=== PATIENT | female | born 1955 | race Caucasian/White ===

== ENCOUNTER 2022-10-13 11:57 | Emergency (ER) | payer MEDICARE, MEDICAID ==
[2022-10-13] MEDS: Take Home: Amoxicillin 875 MG Tab, 2 Tab Pack PO ONE (12:27)
== END 2022-10-13 12:35 | disposition home or self-care (01) ==
LOC: VM.ED 11:57
DX: J32.9 Chronic sinusitis, unspecified (principal); E11.22 Type 2 diabetes mellitus with diabetic chronic kidney disease; I13.0 Hypertensive heart and chronic kidney disease with heart failure and stage 1 through stage 4 chronic kidney disease, or unspecified chronic kidney disease; I50.9 Heart failure, unspecified; N18.9 Chronic kidney disease, unspecified
CPT/HCPCS: 99284; A9270; 99283

== ENCOUNTER 2023-04-10 09:48 | Inpatient (IN) | payer MEDICARE, MEDICAID ==
[2023-04-10] MEDS ORDERED: Iopamidol 612 MG/ML 100 ML Bottle IVPUSH ONE (10:07)
[2023-04-10] MEDS ORDERED: Sodium Chloride 0.9% 1,000 ML IV SCH ×2 (11:30→22:00)
[2023-04-10] MEDS ORDERED: Piperacillin/Tazobactam 4.5 GM in Sodium Chloride 0.9% 100 ML IV ONE (12:15)
[2023-04-10] MEDS ORDERED: Sodium Chloride 0.9% 10 ML Syringe FLUSH PRN (12:25)
[2023-04-10 12:44] LABS: LACTIC ACID 5.1 mmol/L (0.4-2.0)
[2023-04-10] MEDS ORDERED: Sodium Chloride 0.9% 1,000 ML IV ONE (15:18)
[2023-04-10] MEDS ORDERED: Acetaminophen 325 MG Tab PO PRN (17:20)
[2023-04-10] MEDS ORDERED: HYDROmorphone 0.5 MG/0.5 ML Syringe IVPUSH PRN (17:21)
[2023-04-10] MEDS ORDERED: Ondansetron 4 MG/2 ML SDV IVPUSH PRN (17:21)
[2023-04-10] MEDS: Piperacillin/Tazobactam 3.375 GM in Sodium Chloride 0.9% 100 ML IV SCH (17:52)
[2023-04-10] MEDS: Enoxaparin 30 MG/0.3 ML Syringe SUBCUT SCH (20:22)
[2023-04-10] MEDS: Sodium Chloride 0.9% 10 ML Syringe FLUSH SCH ×2 (20:33→23:11)
[2023-04-11] MEDS: Piperacillin/Tazobactam 3.375 GM in Sodium Chloride 0.9% 100 ML IV SCH ×3 (02:26→17:25)
[2023-04-11] MEDS: Sodium Chloride 0.9% 10 ML Syringe FLUSH SCH ×4 (02:27→15:28)
[2023-04-11] MEDS: Omeprazole 20 MG Cap.CR PO SCH (06:43)
[2023-04-11 07:16] LABS: BASOPHILS ABSOLUTE AUTO 0.1 x10^3/uL (0.0-0.2); BASOPHILS PERCENT AUTO 0.4 % (0.2-1.2); EOSINOPHILS ABSOLUTE AUTO 0.1 x10^3/uL (0.0-0.5); HEMATOCRIT 26.8 % (33.0-47.0); HEMOGLOBIN 9.3 g/dL (12.0-16.0); IMMATURE GRAN ABSOLUTE AUTO 0.05 x10^3/uL (0.00-0.07); LYMPHOCYTES ABSOLUTE AUTO 0.6 x10^3/uL (1.0-4.8); LYMPHOCYTES PERCENT AUTO 4.6 % (25.0-50.0); MEAN CORPUSCULAR HEMOGLOBIN 33.8 pg (26.0-32.0); MEAN CORPUSCULAR HGB CONC 34.7 g/dL (32.0-36.0); MEAN CORPUSCULAR VOLUME 97.5 fL (78.0-93.0); MONOCYTES ABSOLUTE AUTO 0.5 x10^3/uL (0.0-0.8); MONOCYTES PERCENT AUTO 3.8 % (2.0-11.0); NEUTROPHILS ABSOLUTE AUTO 12.2 x10^3/uL (1.8-7.7); NEUTROPHILS PERCENT AUTO 89.8 % (50.0-80.0); PLATELET COUNT,PLT 86 x10^3/uL (130-400); RED BLOOD CELL COUNT 2.75 x10^6/uL (4.00-5.50); WHITE BLOOD CELL COUNT,WBC 13.6 x10^3/uL (4.0-10.0)
[2023-04-11 07:31] LABS: CREATININE 1.9 mg/dL (0.55-1.02); EST CRCL DRUG DOSING (CG) 21.09 mL/min; POTASSIUM,K 3.9 mmol/L (3.5-5.1)
[2023-04-11 07:44] LABS: ANION GAP 15.9 mmol/L (5-15)
[2023-04-11] MEDS: Furosemide 20 MG Tab PO SCH (09:10)
[2023-04-11] MEDS: Levothyroxine 75 MCG Tab PO SCH (09:11)
[2023-04-11] MEDS: Simvastatin 10 MG Tab PO SCH (09:11)
[2023-04-11] MEDS: Aspirin 81 MG Tab.EC PO SCH (09:11)
[2023-04-11] MEDS: Ferrous Sulfate 325 MG Tab PO SCH (09:11)
[2023-04-11] MEDS: Metoprolol Succinate 50 MG Tab.ER PO SCH (09:11)
[2023-04-11] MEDS: OCUSOFT LID SCRUB PLUS EYEBOTH SCH (13:02)
[2023-04-11] MEDS ORDERED: Sodium Chloride 0.9% 10 ML Syringe FLUSH PRN (16:05)
[2023-04-11] MEDS: Enoxaparin 30 MG/0.3 ML Syringe SUBCUT SCH (20:07)
[2023-04-11] MEDS ORDERED: Furosemide 20 MG/2 ML VIAL IV ONE (23:56)
[2023-04-12] MEDS: Piperacillin/Tazobactam 3.375 GM in Sodium Chloride 0.9% 100 ML IV SCH ×3 (02:16→17:51)
[2023-04-12] MEDS: Omeprazole 20 MG Cap.CR PO SCH (06:24)
[2023-04-12 08:24] LABS: BASOPHILS ABSOLUTE AUTO 0.1 x10^3/uL (0.0-0.2); BASOPHILS PERCENT AUTO 0.5 % (0.2-1.2); EOSINOPHILS ABSOLUTE AUTO 0.4 x10^3/uL (0.0-0.5); EOSINOPHILS PERCENT AUTO 2.9 % (0.0-4.0); HEMATOCRIT 27.9 % (33.0-47.0); HEMOGLOBIN 9.7 g/dL (12.0-16.0); IMMATURE GRAN ABSOLUTE AUTO 0.06 x10^3/uL (0.00-0.07); LYMPHOCYTES ABSOLUTE AUTO 0.8 x10^3/uL (1.0-4.8); LYMPHOCYTES PERCENT AUTO 6.3 % (25.0-50.0); MEAN CORPUSCULAR HEMOGLOBIN 33.8 pg (26.0-32.0); MEAN CORPUSCULAR HGB CONC 34.8 g/dL (32.0-36.0); MEAN CORPUSCULAR VOLUME 97.2 fL (78.0-93.0); MONOCYTES ABSOLUTE AUTO 0.5 x10^3/uL (0.0-0.8); MONOCYTES PERCENT AUTO 3.9 % (2.0-11.0); NEUTROPHILS PERCENT AUTO 85.9 % (50.0-80.0); PLATELET COUNT,PLT 90 x10^3/uL (130-400); RED BLOOD CELL COUNT 2.87 x10^6/uL (4.00-5.50); WHITE BLOOD CELL COUNT,WBC 12.8 x10^3/uL (4.0-10.0)
[2023-04-12 08:39] LABS: CALCIUM 9.3 mg/dL (8.5-10.1); EST CRCL DRUG DOSING (CG) 19.37 mL/min; POTASSIUM,K 3.7 mmol/L (3.5-5.1)
[2023-04-12 08:46] LABS: ANION GAP 16.7 mmol/L (5-15)
[2023-04-12] MEDS: Metoprolol Succinate 50 MG Tab.ER PO SCH (09:25)
[2023-04-12] MEDS: Ferrous Sulfate 325 MG Tab PO SCH (09:26)
[2023-04-12] MEDS: Simvastatin 10 MG Tab PO SCH (09:26)
[2023-04-12] MEDS: Levothyroxine 75 MCG Tab PO SCH (09:26)
[2023-04-12] MEDS: Aspirin 81 MG Tab.EC PO SCH (09:26)
[2023-04-12] MEDS: Furosemide 20 MG Tab PO SCH (09:26)
[2023-04-12] MEDS: Lactobacillus Rhamnosus GG (Probiotic) Cap PO SCH (15:54)
[2023-04-12] MEDS: OCUSOFT LID SCRUB PLUS EYEBOTH SCH ×2 (17:34→22:24)
[2023-04-12] MEDS: Furosemide 40 MG/4 ML VIAL IV SCH (17:51)
[2023-04-12] MEDS: Enoxaparin 30 MG/0.3 ML Syringe SUBCUT SCH (20:29)
[2023-04-12] MEDS: Sodium Chloride 0.9% 10 ML Syringe FLUSH SCH (22:23)
[2023-04-13] MEDS: Piperacillin/Tazobactam 3.375 GM in Sodium Chloride 0.9% 100 ML IV SCH ×3 (02:24→17:15)
[2023-04-13] MEDS: Omeprazole 20 MG Cap.CR PO SCH (06:33)
[2023-04-13] MEDS: Sodium Chloride 0.9% 10 ML Syringe FLUSH SCH ×3 (06:35→21:19)
[2023-04-13 08:34] LABS: BASOPHILS ABSOLUTE AUTO 0.1 x10^3/uL (0.0-0.2); BASOPHILS PERCENT AUTO 0.9 % (0.2-1.2); EOSINOPHILS ABSOLUTE AUTO 0.8 x10^3/uL (0.0-0.5); EOSINOPHILS PERCENT AUTO 7.5 % (0.0-4.0); HEMATOCRIT 29.9 % (33.0-47.0); HEMOGLOBIN 10.6 g/dL (12.0-16.0); IMMATURE GRAN ABSOLUTE AUTO 0.07 x10^3/uL (0.00-0.07); LYMPHOCYTES ABSOLUTE AUTO 0.9 x10^3/uL (1.0-4.8); LYMPHOCYTES PERCENT AUTO 8.4 % (25.0-50.0); MEAN CORPUSCULAR HEMOGLOBIN 33.9 pg (26.0-32.0); MEAN CORPUSCULAR HGB CONC 35.5 g/dL (32.0-36.0); MEAN CORPUSCULAR VOLUME 95.5 fL (78.0-93.0); MONOCYTES ABSOLUTE AUTO 0.6 x10^3/uL (0.0-0.8); MONOCYTES PERCENT AUTO 5.9 % (2.0-11.0); NEUTROPHILS ABSOLUTE AUTO 8.1 x10^3/uL (1.8-7.7); NEUTROPHILS PERCENT AUTO 76.6 % (50.0-80.0); PLATELET COUNT,PLT 111 x10^3/uL (130-400); RED BLOOD CELL COUNT 3.13 x10^6/uL (4.00-5.50); WHITE BLOOD CELL COUNT,WBC 10.6 x10^3/uL (4.0-10.0)
[2023-04-13 08:51] LABS: CALCIUM 9.3 mg/dL (8.5-10.1); CREATININE 1.9 mg/dL (0.55-1.02); EST CRCL DRUG DOSING (CG) 21.09 mL/min; POTASSIUM,K 3.4 mmol/L (3.5-5.1)
[2023-04-13 08:58] LABS: ANION GAP 13.4 mmol/L (5-15)
[2023-04-13] MEDS: Furosemide 40 MG/4 ML VIAL IV SCH (09:46)
[2023-04-13] MEDS: Aspirin 81 MG Tab.EC PO SCH (09:59)
[2023-04-13] MEDS: Levothyroxine 75 MCG Tab PO SCH (09:59)
[2023-04-13] MEDS: Metoprolol Succinate 50 MG Tab.ER PO SCH (09:59)
[2023-04-13] MEDS: Lactobacillus Rhamnosus GG (Probiotic) Cap PO SCH (09:59)
[2023-04-13] MEDS: Ferrous Sulfate 325 MG Tab PO SCH (09:59)
[2023-04-13] MEDS: Simvastatin 10 MG Tab PO SCH (10:00)
[2023-04-13] MEDS: OCUSOFT LID SCRUB PLUS EYEBOTH SCH (20:24)
[2023-04-13] MEDS: Enoxaparin 30 MG/0.3 ML Syringe SUBCUT SCH (20:28)
[2023-04-14] MEDS: Piperacillin/Tazobactam 3.375 GM in Sodium Chloride 0.9% 100 ML IV SCH ×2 (01:03→09:01)
[2023-04-14] MEDS: Omeprazole 20 MG Cap.CR PO SCH (06:19)
[2023-04-14 07:06] LABS: BASOPHILS ABSOLUTE AUTO 0.1 x10^3/uL (0.0-0.2); BASOPHILS PERCENT AUTO 0.7 % (0.2-1.2); EOSINOPHILS ABSOLUTE AUTO 0.9 x10^3/uL (0.0-0.5); EOSINOPHILS PERCENT AUTO 8.9 % (0.0-4.0); HEMATOCRIT 29.8 % (33.0-47.0); HEMOGLOBIN 10.7 g/dL (12.0-16.0); IMMATURE GRAN ABSOLUTE AUTO 0.16 x10^3/uL (0.00-0.07); LYMPHOCYTES ABSOLUTE AUTO 0.9 x10^3/uL (1.0-4.8); MEAN CORPUSCULAR HEMOGLOBIN 34.3 pg (26.0-32.0); MEAN CORPUSCULAR HGB CONC 35.9 g/dL (32.0-36.0); MEAN CORPUSCULAR VOLUME 95.5 fL (78.0-93.0); MONOCYTES ABSOLUTE AUTO 0.7 x10^3/uL (0.0-0.8); MONOCYTES PERCENT AUTO 6.6 % (2.0-11.0); NEUTROPHILS ABSOLUTE AUTO 7.6 x10^3/uL (1.8-7.7); NEUTROPHILS PERCENT AUTO 73.3 % (50.0-80.0); PLATELET COUNT,PLT 132 x10^3/uL (130-400); RED BLOOD CELL COUNT 3.12 x10^6/uL (4.00-5.50); WHITE BLOOD CELL COUNT,WBC 10.4 x10^3/uL (4.0-10.0)
[2023-04-14 07:20] LABS: CALCIUM 9.4 mg/dL (8.5-10.1); EST CRCL DRUG DOSING (CG) 19.62 mL/min; POTASSIUM,K 3.4 mmol/L (3.5-5.1)
[2023-04-14 07:21] LABS: ANION GAP 13.4 mmol/L (5-15)
[2023-04-14] MEDS: Ferrous Sulfate 325 MG Tab PO SCH (09:03)
[2023-04-14] MEDS: Metoprolol Succinate 50 MG Tab.ER PO SCH (09:03)
[2023-04-14] MEDS: Lactobacillus Rhamnosus GG (Probiotic) Cap PO SCH (09:03)
[2023-04-14] MEDS: Simvastatin 10 MG Tab PO SCH (09:04)
[2023-04-14] MEDS: Aspirin 81 MG Tab.EC PO SCH (09:04)
[2023-04-14] MEDS: Sodium Chloride 0.9% 10 ML Syringe FLUSH SCH (09:04)
[2023-04-14] MEDS: Levothyroxine 75 MCG Tab PO SCH (09:04)
[2023-04-14] MEDS: Furosemide 40 MG/4 ML VIAL IV SCH (09:06)
[2023-04-14] MEDS ORDERED: Potassium Chloride 10 MEQ Tab.ER PO ONE (09:30)
== END 2023-04-14 15:55 | disposition home or self-care (01) | DRG 698 ==
LOC: VM.CT 09:48 → VM.MS 10:42 → UNDOADMIN 10:42 → VM.MS 11:06 → UNDODISIN 04-14 15:55
PROVIDERS: ADMIT Nurse Practitioner Family; ATTEND Family Medicine
DX: T83.511A Infection and inflammatory reaction due to indwelling urethral catheter, initial encounter (principal); A41.9 Sepsis, unspecified organism; R65.20 Severe sepsis without septic shock; J96.01 Acute respiratory failure with hypoxia; N17.9 Acute kidney failure, unspecified; I13.0 Hypertensive heart and chronic kidney disease with heart failure and stage 1 through stage 4 chronic kidney disease, or unspecified chronic kidney disease; E87.0 Hyperosmolality and hypernatremia; I50.32 Chronic diastolic (congestive) heart failure; N39.0 Urinary tract infection, site not specified; E11.22 Type 2 diabetes mellitus with diabetic chronic kidney disease; E03.9 Hypothyroidism, unspecified; N18.30 Chronic kidney disease, stage 3 unspecified; E78.00 Pure hypercholesterolemia, unspecified; K59.09 Other constipation; N13.9 Obstructive and reflux uropathy, unspecified; E78.5 Hyperlipidemia, unspecified; M48.061 Spinal stenosis, lumbar region without neurogenic claudication; K21.9 Gastro-esophageal reflux disease without esophagitis; N18.32 Chronic kidney disease, stage 3b; E27.9 Disorder of adrenal gland, unspecified; Z85.3 Personal history of malignant neoplasm of breast; F71 Moderate intellectual disabilities; H90.6 Mixed conductive and sensorineural hearing loss, bilateral; Z79.82 Long term (current) use of aspirin; Z79.84 Long term (current) use of oral hypoglycemic drugs; Z79.899 Other long term (current) drug therapy; Y84.6 Urinary catheterization as the cause of abnormal reaction of the patient, or of later complication, without mention of misadventure at the time of the procedure
CPT/HCPCS: 36415; 51702; 71046; 74176; 80048; 83605; 84145; 85025; 87040; 97161-GP; A9270-GY; J1170; J1650; J1940; J2405; J2543; J3490; J7030

== ENCOUNTER 2023-08-15 07:47 | Day surgery (SDC) | payer MEDICARE, MEDICAID ==
[2023-08-15] MEDS: Lactated Ringers 1,000 ML IV SCH (08:02)
[2023-08-15] MEDS ORDERED: Propofol 200 MG/20 ML SDV ONE (08:44)
== END 2023-08-15 11:17 ==
LOC: VM.SDS 07:47
PROVIDERS: ATTEND Student in an Organized Health Care Education/Training Program
DX: Z12.11 Encounter for screening for malignant neoplasm of colon (principal); I10 Essential (primary) hypertension; E03.9 Hypothyroidism, unspecified; E78.5 Hyperlipidemia, unspecified; E11.9 Type 2 diabetes mellitus without complications; N18.30 Chronic kidney disease, stage 3 unspecified; M81.0 Age-related osteoporosis without current pathological fracture; I50.32 Chronic diastolic (congestive) heart failure; Z79.899 Other long term (current) drug therapy; Z80.0 Family history of malignant neoplasm of digestive organs
CPT/HCPCS: 00812; 82947; J2704; J7120